=== PATIENT | female | born 1945 | race African-American/Black ===

== ENCOUNTER 2020-08-11 10:17 | Inpatient (IN) | payer OTHER ==
[2020-08-11] MEDS ORDERED: SODIUM CHLORIDE 500 ML IV STA (11:55)
[2020-08-11] MEDS ORDERED: ACETAMINOPHEN 1000 MG/100 ML VIAL (NON FORMULARY) IVPB ONE (11:55)
[2020-08-11] MEDS ORDERED: MECLIZINE HCL 25 MG TABLET (FP) PO ONE (11:55)
[2020-08-11 12:02] LABS: BASO % 0.6 % (0-2.0); EOS % 1.9 % (0-4.5); HEMATOCRIT 38.7 % (32.4-45.2); LYMPH % 17.5 % (8-40); MCH 28.6 pg (25.7-33.7); MCHC 33.6 g/dl (32.0-36.0); MEAN PLT VOLUME 8.7 fl (7.5-11.1); MONO % 7.1 % (3.8-10.2); NEUT % 72.9 % (42.8-82.8); PLATELET COUNT 240 K/MM3 (134-434); RBC 4.55 M/mm3 (3.60-5.2); RDW 13.6 % (11.6-15.6); WHITE BLOOD COUNT 7.8 K/mm3 (4.0-10.0)
[2020-08-11] MEDS ORDERED: ACETAMINOPHEN INJECTION 100 ML IVPB ONE (12:03)
[2020-08-11] MEDS ORDERED: MECLIZINE HCL 25 MG TABLET (FP) ONE (12:03)
[2020-08-11 12:21] LABS: CHLORIDE 105 mmol/L (98-107); POTASSIUM 4.5 mmol/L (3.5-5.1); SODIUM 144 mmol/L (136-145)
[2020-08-11 12:23] LABS: ALBUMIN 3.5 g/dl (3.4-5.0); CALCIUM 9.6 mg/dL (8.5-10.1)
[2020-08-11 12:24] LABS: ANION GAP 7 MMOL/L (8-16); BLOOD UREA NITROGEN 8.7 mg/dL (7-18); CO2 33 mmol/L (21-32); GLUCOSE,RANDOM 91 mg/dL (74-106); MAGNESIUM 2.2 mg/dL (1.8-2.4)
[2020-08-11 12:27] LABS: CREATININE 0.7 mg/dL (0.55-1.3); SGOT/AST 30 U/L (15-37); SGPT/ALT 17 U/L (13-61)
[2020-08-11 12:28] LABS: BILIRUBIN,TOTAL 0.5 mg/dL (0.2-1)
[2020-08-11 12:29] LABS: N-TERMINAL BNP 43.8 pg/ml (5-125)
[2020-08-11 12:30] LABS: ALK PHOS 89 U/L (45-117)
[2020-08-11 14:24] LABS: PH,URINE 8.5 (5.0-8.0); URINE APPEARANCE CLEAR; URINE BILIRUBIN NEGATIVE (NEGATIVE); URINE COLOR YELLOW; URINE GLUCOSE (UA) NEGATIVE (NEGATIVE); URINE KETONE NEGATIVE (NEGATIVE); URINE LEUK ESTERASE NEGATIVE (NEGATIVE); URINE NITRITE NEGATIVE (NEGATIVE); URINE PROTEIN NEGATIVE (NEGATIVE); URINE UROBILINOGEN 0.2 mg/dL (0.2-1.0)
[2020-08-11] MEDS ORDERED: ACETAMINOPHEN 325 MG TABLET (FP) PO PRN (17:38)
[2020-08-11] MEDS ORDERED: SODIUM CHLORIDE 1,000 ML IV SCH (17:45)
[2020-08-11] MEDS ORDERED: ENOXAPARIN NA (PORCINE) 40 MG/0.4 ML DISP.SYRIN SQ ONE (17:48)
[2020-08-11] MEDS ORDERED: ASPIRIN 81 MG CHEWABLE TABLETS ONE (17:48)
[2020-08-11] MEDS: ENOXAPARIN NA (PORCINE) 40 MG/0.4 ML DISP.SYRIN SQ SCH (18:01)
[2020-08-11] MEDS: ASPIRIN 81 MG CHEWABLE TABLETS PO SCH (18:01)
[2020-08-11] MEDS ORDERED: INSULIN REGULAR HUMAN 100 UNITS/ML *VIAL ONE (18:06)
[2020-08-12 01:19] VITALS: BMI 26.1
[2020-08-12 07:48] LABS: BASO % 0.5 % (0-2.0); EOS % 5.4 % (0-4.5); HEMATOCRIT 35.5 % (32.4-45.2); LYMPH % 28.2 % (8-40); MCHC 33.9 g/dl (32.0-36.0); MEAN CELL VOLUME 85.6 fl (80-96); MEAN PLT VOLUME 8.9 fl (7.5-11.1); MONO % 7.7 % (3.8-10.2); NEUT % 58.2 % (42.8-82.8); PLATELET COUNT 230 K/MM3 (134-434); RBC 4.15 M/mm3 (3.60-5.2); RDW 13.5 % (11.6-15.6); WHITE BLOOD COUNT 6.7 K/mm3 (4.0-10.0)
[2020-08-12 08:04] LABS: POTASSIUM 4.3 mmol/L (3.5-5.1)
[2020-08-12 08:07] LABS: CALCIUM 8.5 mg/dL (8.5-10.1)
[2020-08-12 08:08] LABS: BLOOD UREA NITROGEN 11.9 mg/dL (7-18); MAGNESIUM 2.2 mg/dL (1.8-2.4)
[2020-08-12 08:10] LABS: PHOSPHOROUS 3.5 mg/dL (2.5-4.9)
[2020-08-12 08:11] LABS: CREATININE 0.7 mg/dL (0.55-1.3)
[2020-08-12 08:12] LABS: BILIRUBIN,TOTAL 0.3 mg/dL (0.2-1); TOT PROT 6.7 g/dl (6.4-8.2)
[2020-08-12] MEDS: ENOXAPARIN NA (PORCINE) 40 MG/0.4 ML DISP.SYRIN SQ SCH (10:05)
[2020-08-12] MEDS: ASPIRIN 81 MG CHEWABLE TABLETS PO SCH (10:05)
[2020-08-12 11:11] LABS: ERYTHROCYTE SEDIMENTATION RATE 16 mm/hr (0-30)
[2020-08-12] MEDS ORDERED: metoPROLOL SUCCINATE 25 MG TAB.SR.24H (FP) PO SCH (12:15)
[2020-08-13] MEDS ORDERED: metoPROLOL SUCCINATE 25 MG TAB.SR.24H (FP) PO SCH (08:04)
[2020-08-13 08:38] LABS: BASO % 0.5 % (0-2.0); EOS % 6.1 % (0-4.5); HEMATOCRIT 35.2 % (32.4-45.2); HEMOGLOBIN 11.8 GM/dL (10.7-15.3); LYMPH % 25.2 % (8-40); MCH 28.6 pg (25.7-33.7); MCHC 33.5 g/dl (32.0-36.0); MEAN CELL VOLUME 85.4 fl (80-96); MEAN PLT VOLUME 8.7 fl (7.5-11.1); MONO % 7.9 % (3.8-10.2); NEUT % 60.3 % (42.8-82.8); PLATELET COUNT 210 K/MM3 (134-434); RBC 4.12 M/mm3 (3.60-5.2); RDW 13.8 % (11.6-15.6); WHITE BLOOD COUNT 6.9 K/mm3 (4.0-10.0)
[2020-08-13 08:51] LABS: POTASSIUM 3.9 mmol/L (3.5-5.1)
[2020-08-13 08:52] LABS: CALCIUM 8.8 mg/dL (8.5-10.1)
[2020-08-13 08:53] LABS: ALBUMIN 2.8 g/dl (3.4-5.0); BLOOD UREA NITROGEN 11.6 mg/dL (7-18); MAGNESIUM 2.1 mg/dL (1.8-2.4)
[2020-08-13 08:56] LABS: CREATININE 0.7 mg/dL (0.55-1.3)
[2020-08-13 08:57] LABS: BILIRUBIN,TOTAL 0.3 mg/dL (0.2-1)
[2020-08-13 08:58] LABS: TOT PROT 6.6 g/dl (6.4-8.2)
[2020-08-13] MEDS: ENOXAPARIN NA (PORCINE) 40 MG/0.4 ML DISP.SYRIN SQ SCH (09:13)
[2020-08-13] MEDS: ASPIRIN 81 MG CHEWABLE TABLETS PO SCH (09:13)
[2020-08-13 14:17] VITALS: PULSE 81
[2020-08-13 14:31] VITALS: BP 129/81; TEMP 98
== END 2020-08-13 18:26 | disposition home or self-care (01) | DRG 305 ==
LOC: JER 10:17 → JERBED 15:31 → J4S 21:59
PROVIDERS: ADMIT Internal Medicine; ATTEND Nurse Practitioner Family
DX: I16.0 Hypertensive urgency (principal); H81.10 Benign paroxysmal vertigo, unspecified ear; R51.9 Headache, unspecified; I71.2 Thoracic aortic aneurysm, without rupture
CPT/HCPCS: 36415; 70450-TC; 70551-TC; 71045-TC-FY; 72125-TC; 80053; 80061; 81003; 82550; 82553; 83721; 83735; 83880; 84100; 84443; 84484; 85025; 85651; 86140; 87086; 93005; 93010; 93306-TC; 97116-GP; 97161-GP; 99285-25; C9803; J0131; U0003; U0005

== ENCOUNTER 2020-08-14 23:51 | Emergency (ER) | payer OTHER ==
[2020-08-15 01:12] VITALS: TEMP 98.3; BMI 25.8
[2020-08-15 02:09] VITALS: BP 130/88; PULSE 74
== END 2020-08-15 02:27 | disposition home or self-care (01) ==
LOC: JER 23:51
DX: I10 Essential (primary) hypertension (principal)
CPT/HCPCS: 99282-25